=== PATIENT | female | born 1975 | race Caucasian/White ===

== ENCOUNTER 2016-09-16 06:01 | Emergency (ER) | payer BC, OTHER ==
[2016-09-16] MEDS ORDERED: ONDANSETRON 4 MG/2ML 2 ML VIAL ONE (06:42)
[2016-09-16] MEDS ORDERED: LACTATED RINGERS 1,000 ML ONE ×2 (06:43→09:24)
[2016-09-16 06:53] LABS: BASO % 0.1 % (0.2-1.0); HEMATOCRIT 39.9 % (37.0-47.0); HEMOGLOBIN 13.6 gm/l (12.0-16.0); IMM NEUT% 0.3 % (0-1); LYMPH # 0.4 (1.0-4.8); LYMPH % 6.2 % (15-45); MEAN CELL VOLUME 83.6 fl (81.0-99.0); MEAN CORPUSCULAR HEMOGLOBIN 28.5 pg (27.0-31.0); MEAN CORPUSCULAR HGB CONC 34.1 g/dl (33.0-37.0); MEAN PLATELET VOLUME 11.8 fl (7.4-10.4); MONO # 0.5 (0.0-0.8); MONO % 7.6 % (4-12); NEUT % 85.8 % (43-75); PLATELET COUNT 181 K/mm3 (130-400)
[2016-09-16 07:13] LABS: ALB/GLOB RATIO 1.2 (>1.0); ALBUMIN 4.2 gm/dL (3.5-5.7)
[2016-09-16 09:09] LABS: C DIFF TOXIN A/B NEGATIVE (NEGATIVE)
[2016-09-16] MEDS ORDERED: DICYCLOMINE HCL 10 MG CAPSULE ONE (10:26)
== END 2016-09-16 10:38 | disposition home or self-care (01) ==
LOC: ED 06:01
DX: R11.2 Nausea with vomiting, unspecified (principal); R19.7 Diarrhea, unspecified
CPT/HCPCS: 83690; 87324; 87449; 85025; 80053; 87205; 99284; 96374; 96361; 99283; A9270; J2405; J7120 ×2